=== PATIENT | male | born 1950 | race Caucasian/White ===

== ENCOUNTER → 2017-09-16 09:30 | Outpatient (CLI) | payer MEDICARE, BC, SELFPAY ==
[2017-09-16 10:39] LABS: Hemoglobin A1C 6.7 % (4.5-6.2)
== END ==
PROVIDERS: PCP Emergency Medicine; Visit Provider Emergency Medicine
DX: E11.9 Type 2 diabetes mellitus without complications (principal)
CPT/HCPCS: 83036

== ENCOUNTER 2018-01-04 13:18 | Outpatient (CLI) | payer MEDICARE, BC, SELFPAY ==
--- NOTE | 2018-01-04 12:37 | DI.RAD_ITS ---
SYMPTOM/DIAGNOSIS: RT HEEL PAIN, TENDERNESS, M79.673, M79.671 RIGHT FOOT: There is a plantar calcaneal spur as well as a small spur at the Achilles insertion. No bony erosions, foreign body or abnormal gas collections are seen. IMPRESSION: Heel spurs.
== END 2018-01-04 13:38 ==
PROVIDERS: PCP Emergency Medicine; Visit Provider Family Medicine
DX: M79.671 Pain in right foot; M77.31 Calcaneal spur, right foot
CPT/HCPCS: 73630

== ENCOUNTER 2018-09-15 07:30 | Outpatient (CLI) | payer MEDICARE, BC, SELFPAY ==
--- NOTE | 2018-09-15 10:32 | DI.RAD_ITS ---
SYMPTOM/DIAGNOSIS: BILAT HAND PAIN, STIFFNESS, M79.642 RIGHT HAND: There is narrowing of the interphalangeal joint spaces of the fingers and mild to moderate periarticular spurring. No bony erosions are seen. There is minimal spurring of the metacarpal phalangeal joints. There is joint space narrowing, sclerosis and spurring at the first carpal metacarpal joint. IMPRESSION: Degenerative changes, greatest at the first carpal metacarpal joint. Degenerative change is also noted in the interphalangeal joints of the fingers. LEFT HAND: There is joint space narrowing and spurring at the first carpal metacarpal joint. There is also some spurring at the distal pole of the navicular. There is also a question of a subchondral cyst in the navicular distally versus bony erosion. Other lucencies are noted at the proximal interphalangeal joints of the second through fifth fingers. There is joint space narrowing and periarticular spurring of mild to moderate degree. There is a mild negative ulnar variance. There is sclerosis and spurring at the proximal radial ulnar joint. There is also some narrowing of the radial carpal joint. IMPRESSION: Degenerative changes, greatest of the first carpal metacarpal joint. There are several areas of lucency which could represent subchondral cysts versus erosive changes.
== END 2018-09-15 07:50 ==
PROVIDERS: PCP Emergency Medicine; Visit Provider Emergency Medicine
DX: M79.641 Pain in right hand (principal); M79.642 Pain in left hand; M25.641 Stiffness of right hand, not elsewhere classified; M25.642 Stiffness of left hand, not elsewhere classified; M18.11 Unilateral primary osteoarthritis of first carpometacarpal joint, right hand; M18.12 Unilateral primary osteoarthritis of first carpometacarpal joint, left hand; M19.041 Primary osteoarthritis, right hand
CPT/HCPCS: 73130

== ENCOUNTER 2018-09-21 09:36 | Outpatient (CLI) | payer MEDICARE, BC, SELFPAY ==
[2018-09-21 10:36] LABS: Hemoglobin A1C 7.2 % (4.5-6.2)
[2018-09-21 10:52] LABS: Anion Gap 10.5 mmol/L (3-11); BUN 19 mg/dL (7-18); CO2 25.5 mmol/L (21.0-32.0); CREATININE 1.15 mg/dL (0.70-1.30); Calcium 9.3 mg/dL (8.5-10.1); Calculated LDL 75 mg/dL; Chloride 103 mmol/L (98-107); Cholesterol 151 mg/dL (50-200); Glucose 182 mg/dL (70-100); HDL Cholesterol 37 mg/dL (40-60); Potassium 4.2 mmol/L (3.5-5.1); Sodium 139 mmol/L (136-145); Triglyceride 197 mg/dL (30-150)
[2018-09-22 10:33] LABS: PSA, Screening 3.1 ng/ml (0-4.5)
== END 2018-09-21 09:56 ==
PROVIDERS: PCP Emergency Medicine; Visit Provider Emergency Medicine
DX: E11.9 Type 2 diabetes mellitus without complications (principal); N40.0 Benign prostatic hyperplasia without lower urinary tract symptoms; Z12.5 Encounter for screening for malignant neoplasm of prostate
CPT/HCPCS: 36415; 80048; 80061; 83721; 84153; 83036

== ENCOUNTER 2019-08-15 14:57 | Outpatient (CLI) | payer MEDICARE, BC, SELFPAY ==
--- NOTE | 2019-08-15 15:00 | NS.NUTBLAN_ITS ---
69 year old male referred to me for Diabetic Education for uncontrolled diabetes. He states that he wants to avoid insulin and would like to make dietary changes to improve his blood sugars. He is taking metformin and glipizide and on maximum doses of each. A1C (07/22/19) 7.8% and has been trending upward indicating sugars are tyipically > 180 mg/dl. . Blood sugar today at 11 am after pancakes and syrup was 450 mg/dl. 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 Álvaro reports that his fasting sugars range from 190-220 mg/dl. He has an appt. with PCP on 08/22/19 who may recommend insulin. Wt: 210 lbs, BMI 32. PMH: hyperlipidemia, DM, obesity. He is retired and typically eats at diner at breakfast. Reviewed risks of elevated blood sugars with álvaro and encouraged him to call his PCP re: blood sugar >250 mg/dl. Estimated Needs: [id number] kcal, 60-80 g protein Food record indicates that Álvaro drinks 4-6 cups of 2% milk daily (provides over 60 g simple sugar as lactose). Typical breakfast is pancakes or breakfast egg and cheese sandwich, lunch a sandwich on white bread and dinner is typically potatoes, meat and veggies. His diet is high in carbohydrates especially from milk and starch intake which are greatly contributing to poorly controlled DM. His activity includes working around the house but has no formal exercise program. He lives with his that is 15 years younger and does all the cooking. During interview, he seemed forgetful but interested in making needed changes to improve his sugars. Provided education on DM including Hyper/hypoglycemia s/s with action plan for each scenario. Definition and types of CHO with examples, CHO counting, DM meal planning and label reading literature. Provided a blood sugar and food record chart and materials to reiterate CHO counting techniques. Reviewed desirable BG levels with patient with food choices and portions for optimal outcomes. Álvaro was agreeable to reduce milk intake to 8 ounces daily and agreeable to walk 7 miles per week to help decrease sugar intake and insulin resistance. He also stated he would start eating breakfast at home and limit starch intake as recommended to less than 100 grams carbohydrate daily. Álvaro is also agreeable to log his blood sugars 4 times daily and bring to his PCP next week. If he needs assistance with insulin administration, recommend sending him to Radha Morataya RN, CDE at [facility] for diabetes medical management. Plan: fu visit 09/02/19 1300 bring blood sugar log to PCP next week contact PCP if BS>250 mg/dl fu with Radha CHARLES at [facility] for insulin administration education
== END 2019-08-15 15:17 ==
PROVIDERS: PCP Emergency Medicine; Visit Provider Dietitian, Registered
DX: E11.9 Type 2 diabetes mellitus without complications (principal); Z79.84 Long term (current) use of oral hypoglycemic drugs; Z71.3 Dietary counseling and surveillance
CPT/HCPCS: 97802

== ENCOUNTER 2019-09-12 14:58 | Outpatient (CLI) | payer MEDICARE, BC, SELFPAY ==
--- NOTE | 2019-09-12 13:00 | NS.NUTBLAN_ITS ---
Álvaro returns for follow up visit for Diabetic Education for uncontrolled diabetes. Food record indicates that he has made some small changes, decreased milk intake, decreased eating out but fasting and post prandial blood sugars remains elevated, typically > 180 md/dl and often > 250 mg/dl. He has not started a routine exercise regime. Wt: 209 lbs, unchanged from last month. I encouraged Álvaro to follow up with PCP, as diet and lifestyle changes have not sufficiently been able to lower blood sugars and current blood sugar levels will lead to vascular damage. Álvaro continues to appear confused about the needed diet changes to lower blood sugars. He is agreeable to start insulin and states he has appt. with PCP week of September 18. Assessment: Álvaro is unable to make necessary diet and life style changes to improve his blood sugars with current medications. Plan: Recommend follow up with PCP for insulin management, continue to reduce simple carbohydrate intake, start routine exercise. No follow visit made.
== END 2019-09-12 15:18 ==
PROVIDERS: PCP Emergency Medicine; Visit Provider Dietitian, Registered
DX: E11.9 Type 2 diabetes mellitus without complications (principal); Z79.84 Long term (current) use of oral hypoglycemic drugs; Z71.3 Dietary counseling and surveillance
CPT/HCPCS: 97803

== ENCOUNTER 2020-03-22 02:58 | Outpatient (CLI) | payer MEDICARE, BC, SELFPAY ==
[2020-03-22 09:37] LABS: Hemoglobin A1C 7.7 % (<5.7)
[2020-03-22 09:40] LABS: Anion Gap 10.1 mmol/L (3-11); BUN 22 mg/dL (7-18); CO2 25.9 mmol/L (21.0-32.0); CREATININE 1.3 mg/dL (0.70-1.30); Calcium 10.5 mg/dL (8.5-10.1); Chloride 102 mmol/L (98-107); Glucose 198 mg/dL (74-106); Potassium 4.3 mmol/L (3.5-5.1); Sodium 138 mmol/L (136-145)
== END 2020-03-22 02:59 | disposition home or self-care (01) ==
LOC: LBO 02:58
PROVIDERS: PCP Emergency Medicine; Visit Provider Emergency Medicine
DX: I10 Essential (primary) hypertension (principal); E11.9 Type 2 diabetes mellitus without complications
CPT/HCPCS: 36415; 80048; 83036

== ENCOUNTER 2020-07-16 04:09 | Outpatient (CLI) | payer MEDICARE, BC, SELFPAY ==
[2020-07-16 12:30] LABS: Albumin 4.5 g/dL (3.4-5.0); Alkaline Phosphatase 105 U/L (46-116); Calcium 9.9 mg/dL (8.5-10.1)
== END 2020-07-16 04:10 | disposition home or self-care (01) ==
LOC: LOS 04:09
PROVIDERS: PCP Emergency Medicine; Visit Provider Emergency Medicine
DX: E83.52 Hypercalcemia (principal)
CPT/HCPCS: 36415; 82040; 82310; 84075

== ENCOUNTER 2020-11-13 03:36 | Outpatient (CLI) | payer MEDICARE, SELFPAY ==
[2020-11-13 09:24] LABS: Hemoglobin A1C 7.7 % (<5.7)
[2020-11-13 09:27] LABS: COMMENT (LAB VIEW ONLY) 118.28 mg/dL; Microalb ug/mg Crea 18.9 ug/mg Cr
[2020-11-13 09:28] LABS: Anion Gap 8.5 mmol/L (3-11); BUN 20 mg/dL (7-18); CO2 27.5 mmol/L (21.0-32.0); CREATININE 1.2 mg/dL (0.70-1.30); Calcium 9.8 mg/dL (8.5-10.1); Calculated LDL 65 mg/dL (<100); Chloride 105 mmol/L (98-107); Cholesterol 155 mg/dL (<200); Glucose 178 mg/dL (74-106); HDL Cholesterol 39 mg/dL (40-60); Potassium 4.3 mmol/L (3.5-5.1); Sodium 141 mmol/L (136-145); Triglyceride 258 mg/dL (<150)
[2020-11-13 17:32] LABS: PSA, Screening 5.3 ng/mL (0.0-4.5)
== END 2020-11-13 03:37 | disposition home or self-care (01) ==
LOC: LBO 03:36
PROVIDERS: PCP Emergency Medicine; Visit Provider Emergency Medicine
DX: I10 Essential (primary) hypertension (principal); E11.65 Type 2 diabetes mellitus with hyperglycemia; N40.0 Benign prostatic hyperplasia without lower urinary tract symptoms; Z12.5 Encounter for screening for malignant neoplasm of prostate
CPT/HCPCS: 36415; 80048; 80061; 84153; 82043; 82570; 83036

== ENCOUNTER → 2021-02-18 10:43 | Outpatient (BNVA) | payer MEDICARE, BC, SELFPAY | PROVIDERS: PCP Emergency Medicine; Referring Provider Emergency Medicine; Visit Provider Nurse Practitioner Gerontology | DX: R39.89 Other symptoms and signs involving the genitourinary system (principal); R97.20 Elevated prostate specific antigen [PSA]; I10 Essential (primary) hypertension; E11.9 Type 2 diabetes mellitus without complications | CPT/HCPCS: 99204 ==

== ENCOUNTER → 2021-04-02 09:02 | Outpatient (BNVA) | payer MEDICARE, BC, SELFPAY | PROVIDERS: PCP Emergency Medicine; Referring Provider Emergency Medicine; Visit Provider Nurse Practitioner Gerontology | DX: R33.8 Other retention of urine (principal); R97.20 Elevated prostate specific antigen [PSA] | CPT/HCPCS: 99214 ==

== ENCOUNTER 2021-06-15 10:34 | Outpatient (CLI) | payer MEDICARE, BC, SELFPAY ==
[2021-06-15 12:15] LABS: Anion Gap 8.9 mmol/L (3-11); BUN 20 mg/dL (7-18); CO2 28.1 mmol/L (21.0-32.0); CREATININE 1.4 mg/dL (0.70-1.30); Calcium 9.5 mg/dL (8.5-10.1); Chloride 100 mmol/L (98-107); Estimated GFR 50.25 (mL/min/1.73m2); Glucose 385 mg/dL (74-106); Potassium 3.8 mmol/L (3.5-5.1); Sodium 137 mmol/L (136-145)
== END 2021-06-15 10:35 | disposition home or self-care (01) ==
LOC: NCHCO 10:37
PROVIDERS: Visit Provider Family Medicine
DX: B34.2 Coronavirus infection, unspecified (principal); E11.9 Type 2 diabetes mellitus without complications
CPT/HCPCS: 36415; 80048

== ENCOUNTER 2021-11-28 04:11 | Outpatient (CLI) | payer MEDICARE, BC, SELFPAY ==
--- NOTE | 2021-11-28 11:00 | NS.NUTBLAN_ITS ---
Álvaro was referred for diabetes self management education. Met with Álvaro last in 2020. Weight: 197 lbs, down 12 lbs in last couple of years Diet Recall: B: breakfast sandwich, Lunch and Dinner: Meal site. Drinks 1 gallon milk every 2-3 days Exercise: just got a new dog. Has been walking 30-60 min daily Dm meds: glipizide 10 mg qd, metformin 1000 mg BID, 10 mg Jardiance qd Finger stick today: 227 mg/dl- 2 hours after breakfast sandwich - acceptable. Most recent A1C: 7.7% Overall, Dm well controlled with current DM regime and life style choices. Recent weight loss due to increase in activity and beneficial. Álvaro is difficult to keep on task during education. Appears to have some cognitive impairment/difficulty staying focused and answering questions. Encouraged Álvaro to check his fasting sugars and post prandial sugars a couple times per week. States he does not have a glucometer. Encouraged him to buy one at [facility]. Recommended that milk intake to be reduced to no more than 16 ounces per day. No follow up planned at this time. i
== END 2021-11-28 04:12 | disposition home or self-care (01) ==
LOC: DS 04:11
PROVIDERS: PCP Family Medicine; Visit Provider Dietitian, Registered
DX: E11.9 Type 2 diabetes mellitus without complications (principal)
CPT/HCPCS: 97802

== ENCOUNTER 2021-12-30 02:47 | Outpatient (CLI) | payer MEDICARE, BC, SELFPAY ==
[2021-12-30 18:20] LABS: PSA, Diagnostic 10.2 ng/mL (<=6.5)
== END 2021-12-30 02:48 | disposition home or self-care (01) ==
LOC: LBO 02:48
PROVIDERS: PCP Family Medicine; Visit Provider Nurse Practitioner Gerontology
DX: R97.20 Elevated prostate specific antigen [PSA] (principal)
CPT/HCPCS: 36415; 84153

== ENCOUNTER → 2022-01-08 14:52 | Outpatient (BNVA) | payer MEDICARE, BC, SELFPAY | PROVIDERS: PCP Family Medicine; Referring Provider Emergency Medicine; Visit Provider Nurse Practitioner Gerontology | DX: N40.1 Benign prostatic hyperplasia with lower urinary tract symptoms (principal); R35.0 Frequency of micturition; E11.9 Type 2 diabetes mellitus without complications; R97.20 Elevated prostate specific antigen [PSA] | CPT/HCPCS: 99214 ==

== ENCOUNTER 2022-06-26 14:42 | Outpatient (REF) | payer MEDICARE, BC, SELFPAY ==
[2022-06-26 14:38] LABS: Abs Immature Grans 0.01 10^3/uL (0.0-0.06); Absolute Basophil Count 0.02 10^3/uL (0.0-0.2); Absolute Eosinophil Count 0.25 10^3/uL (0.0-0.7); Absolute Lymphocyte Count 1.76 10^3/uL (1.2-3.4); Absolute Monocyte Count 0.29 10^3/uL (0.1-0.8); Absolute Neutrophil Count 2.84 10^3/uL (1.2-6.7); Basophils % 0.4; Eosinophils % 4.8; HCT 45.3 % (40.0-50.0); HGB 15.3 g/dL (13.5-17.5); Immature Grans % 0.2; MCHC 33.8 % (32.0-36.0); MCV 86 fL (80-95); MPV 10.5 fL (8.0-11.0); Monocytes % 5.6; Platelet Count 176 10^3/uL (130-400); RBC 5.28 10^6/uL (4.36-5.78); RDW 13.6 % (11.8-14.1); RDW-SD 42.5 fL; WBC 5.17 10^3/uL (4.4-10.8)
[2022-06-26 14:43] LABS: ESR 6 mm/hr (0-20)
[2022-06-26 14:59] LABS: ALT 54 U/L (16-63); AST 34 U/L (15-37); Albumin 4.2 g/dL (3.4-5.0); Alkaline Phosphatase 116 U/L (46-116); Anion Gap 12.1 mmol/L (3-11); BUN 33 mg/dL (7-18); Bilirubin, Total 0.6 mg/dL (0.2-1.0); CO2 23.9 mmol/L (21.0-32.0); CREATININE 1.5 mg/dL (0.70-1.30); Chloride 101 mmol/L (98-107); Estimated GFR 49.77 (mL/min/1.73m2); Glucose 225 mg/dL (74-106); Potassium 4.1 mmol/L (3.5-5.1); Sodium 137 mmol/L (136-145); Total Protein 7.5 g/dL (6.4-8.2)
[2022-06-27 10:09] LABS: Lyme Ab w Rflx to Lyme Confirm Negative (Negative)
[2022-06-29 21:15] LABS: Anaplasma phagocytophilum Negative (Negative); B. miyamotoi PCR Negative (Negative); Babesia divergens/MO-1 Negative (Negative); Babesia duncani Negative (Negative); Babesia microti Negative (Negative); Ehrlichia chaffeensis Negative (Negative); Ehrlichia ewingii/canis Negative (Negative); Ehrlichia muris eauclairensis Negative (Negative)
== END 2022-06-26 14:43 | disposition home or self-care (01) ==
LOC: NCHCN 14:42
PROVIDERS: PCP Family Medicine; Visit Provider Family Medicine
DX: E11.9 Type 2 diabetes mellitus without complications (principal); I10 Essential (primary) hypertension; L50.9 Urticaria, unspecified
CPT/HCPCS: 80053; 85652; 87798; 85025; 86618

== ENCOUNTER 2022-07-03 03:15 | Outpatient (CLI) | payer MEDICARE, BC, SELFPAY ==
[2022-07-03 19:43] LABS: PSA, Diagnostic 10.7 ng/mL (<=6.5)
== END 2022-07-03 03:16 | disposition home or self-care (01) ==
LOC: LBO 03:15
PROVIDERS: PCP Family Medicine; Visit Provider Nurse Practitioner Gerontology
DX: N40.0 Benign prostatic hyperplasia without lower urinary tract symptoms (principal); R97.20 Elevated prostate specific antigen [PSA]
CPT/HCPCS: 36415; 84153

== ENCOUNTER → 2022-08-13 08:51 | Outpatient (BNVA) | payer MEDICARE, BC, SELFPAY | PROVIDERS: PCP Family Medicine; Visit Provider Nurse Practitioner Gerontology | DX: R97.20 Elevated prostate specific antigen [PSA] (principal); N40.0 Benign prostatic hyperplasia without lower urinary tract symptoms | CPT/HCPCS: 99213 ==

== ENCOUNTER 2022-12-22 11:11 | Outpatient (REF) | payer MEDICARE, BC, SELFPAY ==
[2022-12-22 14:53] LABS: RBC 0-2 HPF (0-2); WBC Negative HPF (0-5)
[2022-12-22 14:54] LABS: Bacteria Rare HPF (Negative); C & S Indicated? No; Casts Negative LPF (Negative); Crystals Negative HPF (Negative); Epithelial Cells Negative HPF (Negative); Mucus Negative (Negative); Other Cells Negative (Negative)
== END 2022-12-22 11:12 | disposition home or self-care (01) ==
LOC: LBN 11:11
PROVIDERS: PCP Family Medicine; Visit Provider Nurse Practitioner Family
DX: R82.998 Other abnormal findings in urine (principal)
CPT/HCPCS: 81015

== ENCOUNTER → 2022-12-29 02:32 | Outpatient (CLI) | payer MEDICARE, BC, SELFPAY ==
--- NOTE | 2022-12-29 08:00 | DI.RAD_ITS ---
Exam(s) XR FOOT LT COMPLETE EXAM: XR FOOT LT COMPLETE CLINICAL HISTORY: Left foot pain, M79.672. TECHNIQUE: 2D digital imaging was performed. Three views. COMPARISON: No exams were available for comparison FINDINGS: BONES: No acute fracture is present. No bony destructive lesion is seen. Enthesophyte calcaneal enthe sophytes. Small enthesophyte base of 5th metatarsal. JOINTS: No dislocation present. Plantar arch is maintained. Mild spurring dorsum of the navicular. SOFT TISSUE: Normal. IMPRESSION: Enthesophytes. Mild degenerative changes. DATA REPOSITORY: RADIATION DOSE DELIVERED:
== END ==
PROVIDERS: PCP Family Medicine; Visit Provider Podiatrist
DX: M77.9 Enthesopathy, unspecified; M19.072 Primary osteoarthritis, left ankle and foot
CPT/HCPCS: 73630

== ENCOUNTER → 2023-01-09 09:35 | Outpatient (CLI) | payer MEDICARE, BC, SELFPAY ==
--- NOTE | 2023-01-09 | DI.RAD_ITS ---
Exam(s) XR LUMBAR SPINE COMPLETE EXAM: XR LUMBAR SPINE COMPLETE CLINICAL HISTORY: LOW BACK PAIN M54.50. TECHNIQUE: 2D digital imaging was performed of the lumbar spine. Five images were obtained. AP, la teral, right oblique, left oblique and L5-S1 spot views were obtained. COMPARISON: No exams were available for comparison FINDINGS: Moderate arthrosis is seen in the lumbar spine. Facet arthropathy is seen in the lower lumbar spine. No acute fractures or subluxations. No suspicious lytic or sclerotic lesions are seen. No spondyl olysis or spondylolisthesis. Vascular calcifications are present. IMPRESSION: No acute fracture or subluxation. DATA REPOSITORY: RADIATION DOSE DELIVERED:
== END ==
PROVIDERS: PCP Family Medicine; Visit Provider Internal Medicine
DX: M54.50 Low back pain, unspecified (principal)
CPT/HCPCS: 72110

== ENCOUNTER 2023-02-10 02:11 | Outpatient (CLI) | payer MEDICARE, BC, SELFPAY ==
[2023-02-10 21:59] LABS: PSA, Diagnostic 10.7 ng/mL (<=6.5)
== END 2023-02-10 02:12 | disposition home or self-care (01) ==
LOC: LBO 02:11
PROVIDERS: PCP Family Medicine; Visit Provider Nurse Practitioner Gerontology
DX: N40.0 Benign prostatic hyperplasia without lower urinary tract symptoms (principal); R97.20 Elevated prostate specific antigen [PSA]
CPT/HCPCS: 36415; 84153

== ENCOUNTER → 2023-02-17 09:25 | Outpatient (BNVA) | payer MEDICARE, BC, SELFPAY | PROVIDERS: PCP Family Medicine; Referring Provider Family Medicine; Visit Provider Nurse Practitioner Gerontology | DX: N40.1 Benign prostatic hyperplasia with lower urinary tract symptoms (principal); R35.1 Nocturia; R97.20 Elevated prostate specific antigen [PSA] | CPT/HCPCS: 99213 ==

== ENCOUNTER 2023-07-30 16:57 | Outpatient (REF) | payer MEDICARE, BC, SELFPAY ==
[2023-07-30 14:18] LABS: Abs Immature Grans 0.02 10^3/uL (0.0-0.06); Absolute Basophil Count 0.02 10^3/uL (0.0-0.2); Absolute Eosinophil Count 0.26 10^3/uL (0.0-0.7); Absolute Lymphocyte Count 1.94 10^3/uL (1.2-3.4); Absolute Neutrophil Count 2.77 10^3/uL (1.2-6.7); Basophils % 0.4 %; Eosinophils % 4.9 %; HCT 38.7 % (40.0-50.0); HGB 13.4 g/dL (13.5-17.5); Immature Grans % 0.4 %; Lymphocytes % 36.5 %; MCH 31.4 pg (27.0-33.0); MCHC 34.6 % (32.0-36.0); MCV 91 fL (80-95); MPV 10.2 fL (8.0-11.0); Monocytes % 5.6 %; Neutrophils % 52.2 %; Platelet Count 188 10^3/uL (130-400); RBC 4.27 10^6/uL (4.36-5.78); RDW 11.9 % (11.8-14.1); RDW-SD 39.6 fL; WBC 5.31 10^3/uL (4.4-10.8)
[2023-07-30 14:30] LABS: ALT 82 U/L (16-63); AST 63 U/L (15-37); Albumin 4.2 g/dL (3.4-5.0); Alkaline Phosphatase 102 U/L (46-116); Anion Gap 10.1 mmol/L (3-11); BUN 23 mg/dL (7-18); Bilirubin, Total 0.44 mg/dL (0.2-1.0); CO2 27.9 mmol/L (21.0-32.0); CREATININE 1.5 mg/dL (0.70-1.30); Calcium 10.1 mg/dL (8.5-10.1); Chloride 99 mmol/L (98-107); Estimated GFR 49.47 (mL/min/1.73m2); Glucose 293 mg/dL (74-106); LDL CHOLESTEROL 71 mg/dL (<100); Potassium 4.3 mmol/L (3.5-5.1); Sodium 137 mmol/L (136-145); Total Protein 7.2 g/dL (6.4-8.2)
[2023-07-30 14:54] LABS: COMMENT (LAB VIEW ONLY) 101.84 mg/dL; Microalb ug/mg Crea 26.8 ug/mg Cr
== END 2023-07-30 16:58 | disposition home or self-care (01) ==
LOC: NCHCN 16:57
PROVIDERS: PCP Family Medicine; Visit Provider Family Medicine
DX: I10 Essential (primary) hypertension (principal); E78.5 Hyperlipidemia, unspecified; E11.9 Type 2 diabetes mellitus without complications
CPT/HCPCS: 80053; 83721; 82043; 82570; 85025

== ENCOUNTER 2023-08-10 04:19 | Outpatient (CLI) | payer MEDICARE, BC, SELFPAY ==
[2023-08-10 18:46] LABS: PSA, Diagnostic 18.8 ng/mL (<=6.5)
== END 2023-08-10 04:20 | disposition home or self-care (01) ==
LOC: LBO 04:20
PROVIDERS: PCP Family Medicine; Visit Provider Nurse Practitioner Gerontology
DX: R97.20 Elevated prostate specific antigen [PSA] (principal); N40.0 Benign prostatic hyperplasia without lower urinary tract symptoms
CPT/HCPCS: 36415; 84153

== ENCOUNTER → 2023-08-17 10:22 | Outpatient (BNVA) | payer MEDICARE, BC, SELFPAY | PROVIDERS: PCP Family Medicine; Visit Provider Nurse Practitioner Gerontology | DX: N40.1 Benign prostatic hyperplasia with lower urinary tract symptoms (principal); R35.1 Nocturia; R97.20 Elevated prostate specific antigen [PSA] | CPT/HCPCS: 99213 ==

== ENCOUNTER 2023-11-17 03:05 | Outpatient (CLI) | payer MEDICARE, BC, SELFPAY ==
[2023-11-17 20:48] LABS: PSA, Diagnostic 16.3 ng/mL (<=6.5)
== END 2023-11-17 03:06 | disposition home or self-care (01) ==
PROVIDERS: PCP Family Medicine; Visit Provider Nurse Practitioner Gerontology
DX: R97.20 Elevated prostate specific antigen [PSA] (principal)
CPT/HCPCS: 36415; 84153

== ENCOUNTER → 2023-11-25 11:21 | Outpatient (BNVA) | payer MEDICARE, BC, SELFPAY | PROVIDERS: PCP Family Medicine; Visit Provider Nurse Practitioner Gerontology | DX: N40.0 Benign prostatic hyperplasia without lower urinary tract symptoms (principal); R97.20 Elevated prostate specific antigen [PSA] | CPT/HCPCS: 99213 ==

== ENCOUNTER 2024-02-23 02:05 | Outpatient (CLI) | payer MEDICARE, BC, SELFPAY ==
--- NOTE | 2024-02-23 09:00 | DI.RAD_ITS ---
Exam(s) XR SHOULDER RT COMPLETE 2+V EXAM: XR SHOULDER RT COMPLETE 2+V CLINICAL HISTORY: PAIN RT SHOULDER,M25.511. TECHNIQUE: 2D digital imaging was performed of the right shoulder. Five images were obtained. AP, Grashey, Y-view and axillary views were obtained. COMPARISON: No exams were available for comparison FINDINGS: BONES: No acute fracture is present. No bony destructive lesion is seen. JOINTS: No dislocation present. There is moderate osteoarthritis of the acromioclavicular joint and m ild arthrosis of the glenohumeral joint. SOFT TISSUE: There tiny calcifications seen adjacent to the greater tuberosity suggesting calcific te ndinitis. 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 DATA REPOSITORY: RADIATION DOSE DELIVERED:
== END 2024-02-23 02:25 ==
LOC: DI 02:05
PROVIDERS: PCP Family Medicine; Visit Provider Family Medicine
DX: M25.511 Pain in right shoulder (principal)
CPT/HCPCS: 36415; 73030; 84153

== ENCOUNTER 2024-02-23 03:50 | Outpatient (CLI) | payer MEDICARE, BC, SELFPAY ==
[2024-02-23 18:37] LABS: PSA, Diagnostic 15.7 ng/mL (<=6.5)
== END 2024-02-23 03:51 | disposition home or self-care (01) ==
LOC: LBO 03:50
PROVIDERS: PCP Family Medicine; Visit Provider Nurse Practitioner Gerontology
DX: R97.20 Elevated prostate specific antigen [PSA] (principal)
CPT/HCPCS: 36415; 84153

== ENCOUNTER → 2024-03-02 12:50 | Outpatient (BNVA) | payer MEDICARE, BC, SELFPAY | PROVIDERS: PCP Family Medicine; Referring Provider Family Medicine; Visit Provider Nurse Practitioner Gerontology | DX: N42.89 Other specified disorders of prostate (principal); N40.0 Benign prostatic hyperplasia without lower urinary tract symptoms; R97.20 Elevated prostate specific antigen [PSA] | CPT/HCPCS: 99214 ==

== ENCOUNTER 2024-08-18 16:10 | Outpatient (REF) | payer MEDICARE, BC, SELFPAY ==
[2024-08-18 16:44] LABS: COMMENT (LAB VIEW ONLY) 202.48 mg/dL; Microalb ug/mg Crea 42.0 ug/mg Cr
== END 2024-08-18 16:11 | disposition home or self-care (01) ==
LOC: NCHCN 16:10
PROVIDERS: PCP Family Medicine; Visit Provider Family Medicine
DX: E11.9 Type 2 diabetes mellitus without complications (principal)
CPT/HCPCS: 82043; 82570

== ENCOUNTER 2024-08-24 02:54 | Outpatient (CLI) | payer MEDICARE, BC, SELFPAY ==
[2024-08-24 22:51] LABS: PSA, Diagnostic 19.0 ng/mL (<=6.5)
== END 2024-08-24 02:55 | disposition home or self-care (01) ==
LOC: LBO 02:54
PROVIDERS: PCP Family Medicine; Visit Provider Nurse Practitioner Gerontology
DX: R97.20 Elevated prostate specific antigen [PSA] (principal); N40.0 Benign prostatic hyperplasia without lower urinary tract symptoms
CPT/HCPCS: 36415; 84153

== ENCOUNTER → 2024-08-31 13:22 | Outpatient (BNVA) | payer MEDICARE, BC, SELFPAY | PROVIDERS: PCP Family Medicine; Visit Provider Nurse Practitioner Gerontology | DX: N40.0 Benign prostatic hyperplasia without lower urinary tract symptoms (principal); R97.20 Elevated prostate specific antigen [PSA] | CPT/HCPCS: 99213 ==

== ENCOUNTER → 2024-09-14 10:02 | Outpatient (BNVA) | payer MEDICARE, BC, SELFPAY | PROVIDERS: PCP Family Medicine; Referring Provider Family Medicine; Visit Provider Student in an Organized Health Care Education/Training Program | DX: M19.011 Primary osteoarthritis, right shoulder (principal) | CPT/HCPCS: 99213 ==

== ENCOUNTER 2024-10-17 07:36 | Outpatient (CLI) | payer MEDICARE, BC, SELFPAY ==
[2024-10-17 07:39] LABS: Abs Immature Grans 0.01 10^3/uL (0.0-0.06); HCT 39.6 % (40.0-50.0); HGB 13.6 g/dL (13.5-17.5); Immature Grans % 0.2 %; MCH 31.6 pg (27.0-33.0); MCHC 34.3 % (32.0-36.0); MCV 92 fL (80-95); MPV 9.8 fL (8.0-11.0); Platelet Count 146 10^3/uL (130-400); RBC 4.31 10^6/uL (4.36-5.78); RDW 12.6 % (11.8-14.1); RDW-SD 42.4 fL; WBC 4.70 10^3/uL (4.4-10.8)
[2024-10-17 08:03] LABS: ALT 81 U/L (16-63); AST 47 U/L (15-37); Albumin 4.3 g/dL (3.4-5.0); Alkaline Phosphatase 89 U/L (46-116); Anion Gap 9.3 mmol/L (3-11); BUN 20 mg/dL (7-18); Bilirubin, Total 0.5 mg/dL (0.2-1.0); CO2 28.7 mmol/L (21.0-32.0); Calcium 9.9 mg/dL (8.5-10.1); Chloride 104 mmol/L (98-107); Estimated GFR 58.01 (mL/min/1.73m2); Glucose 162 mg/dL (74-106); Potassium 4.1 mmol/L (3.5-5.1); Sodium 142 mmol/L (136-145); Total Protein 7.4 g/dL (6.4-8.2)
== END 2024-10-17 07:37 | disposition home or self-care (01) ==
LOC: LBO 10-18 07:36
PROVIDERS: PCP Family Medicine; Visit Provider Family Medicine
DX: I10 Essential (primary) hypertension (principal)
CPT/HCPCS: 36415; 80053; 85025

== ENCOUNTER 2024-11-23 00:01 | Outpatient (CLI) | payer MEDICARE, BC, SELFPAY ==
[2024-11-23 18:35] LABS: PSA, Diagnostic 21.3 ng/mL (<=6.5)
== END 2024-11-23 00:02 | disposition home or self-care (01) ==
PROVIDERS: PCP Family Medicine; Visit Provider Nurse Practitioner Gerontology
DX: R97.20 Elevated prostate specific antigen [PSA] (principal)
CPT/HCPCS: 36415; 84153

== ENCOUNTER → 2024-11-30 13:57 | Outpatient (BNVA) | payer MEDICARE, BC, SELFPAY | PROVIDERS: PCP Family Medicine; Referring Provider Family Medicine; Visit Provider Nurse Practitioner Gerontology | DX: N40.0 Benign prostatic hyperplasia without lower urinary tract symptoms (principal); R97.20 Elevated prostate specific antigen [PSA] | CPT/HCPCS: 99213 ==